=== PATIENT | female | born 1995 | race Caucasian/White ===

== ENCOUNTER 2017-01-26 13:43 | Emergency (ER) | payer MEDICARE ==
[2017-01-26 17:04] LABS: HEMOGLOBIN 13.2 gm/dl (12.3-15.3); RED BLOOD COUNT 4.21 M/UL (4.00-5.10); WHITE BLOOD COUNT 11.4 K/UL (4.5-11.0)
[2017-01-26 17:20] LABS: BUN/CREATININE RATIO 13 (0-10)
== END 2017-01-26 19:20 | disposition home or self-care (01) ==
LOC: ER1 13:43
PROVIDERS: Specialist/Technologist Athletic Trainer
DX: R51 Headache (principal); M62.838 Other muscle spasm; I10 Essential (primary) hypertension; E66.01 Morbid (severe) obesity due to excess calories; G43.909 Migraine, unspecified, not intractable, without status migrainosus; F17.200 Nicotine dependence, unspecified, uncomplicated; Z90.49 Acquired absence of other specified parts of digestive tract; Z79.899 Other long term (current) drug therapy
CPT/HCPCS: 36415; 70450; 70486; 80053; 84703; 85025; 96374; 96375; 99284; J1885; J2270; J2765; Q0163